=== PATIENT | male | born 2000 | race Caucasian/White ===

== ENCOUNTER 2020-05-20 12:28 | Day surgery (SDC) | payer OTHER ==
[~2020-05-20] VITALS: Ht 180.3 cm; Wt 84.1 kg
[2020-05-20 13:10] LABS: BASO % 0.3 % (0.0-1.0); EOS # 0.2 10^3/uL (0.0-0.5); EOS % 1.4 % (0.0-3.0); HEMATOCRIT 47.9 % (42.0-52.0); HEMOGLOBIN 16.7 g/dl (13.5-17.5); LYMPH # 3.1 10^3/uL (1.5-5.0); LYMPH % 20.3 % (24.0-44.0); MEAN CORPUSCULAR HEMOGLOBIN 30.5 pg (27.0-33.0); MEAN CORPUSCULAR HGB CONC 34.9 g/dl (32.0-36.5); MEAN CORPUSCULAR VOLUME 87.4 fl (80.0-96.0); MONO # 1.4 10^3/uL (0.0-0.8); MONO % 9.3 % (0.0-5.0); NEUTROPHILS # 10.4 10^3/uL (1.5-8.5); NEUTROPHILS % 68.2 % (36.0-66.0); PLATELET COUNT, AUTOMATED 214 10^3/uL (150-450); RED BLOOD COUNT 5.48 10^6/uL (4.30-6.10); WHITE BLOOD COUNT 15.2 10^3/uL (4.0-10.0)
[2020-05-20] MEDS ORDERED: ONDANSETRON 4MG/2ML VIAL IV ONE (13:30)
[2020-05-20] MEDS ORDERED: KETOROLAC 30 MG/ML 1ML VIAL IV ONE (13:30)
[2020-05-20] MEDS ORDERED: NS 1,000 ML IV ONE (13:30)
[2020-05-20 13:56] LABS: ALBUMIN 4.6 GM/DL (3.2-5.2); ALT/SGPT 34 U/L (12-78); BILIRUBIN,TOTAL 1.9 MG/DL (0.2-1.0); BLOOD UREA NITROGEN 14 MG/DL (7-18); CALCIUM LEVEL 9.6 MG/DL (8.5-10.1); CARBON DIOXIDE LEVEL 27 MEQ/L (21-32); CHLORIDE LEVEL 105 MEQ/L (98-107); GLUCOSE, FASTING 83 MG/DL (70-100); LIPASE 34 U/L (73-393); POTASSIUM SERUM 4.4 MEQ/L (3.5-5.1); SODIUM LEVEL 138 MEQ/L (136-145); TOTAL PROTEIN 8.4 GM/DL (6.4-8.2)
[2020-05-20 13:57] LABS: BILIRUBIN,DIRECT 0.3 MG/DL (0.0-0.2)
[2020-05-20] MEDS ORDERED: ISOVUE-370 76% 100ML VIAL As Ordered ONE (14:19)
--- NOTE | 2020-05-20 14:52 | REPVR ---
PROCEDURE INFORMATION: Exam: CT Abdomen And Pelvis With Contrast Exam date and time: 05/20/2020 2:21 PM Age: 19 years old Clinical indication: Abdominal pain; Localized; Right lower quadrant (rlq); Additional info: Rlq abd pain with n/v R/O infectious process TECHNIQUE: Imaging protocol: Computed tomography of the abdomen and pelvis with intravenous contrast. Radiation optimization: All CT scans at this facility use at least one of these dose optimization techniques: automated exposure control; mA and/or kV adjustment per patient size (includes targeted exams where dose is matched to clinical indication); or iterative reconstruction. Contrast material: ISOVUE 370; Contrast volume: 100 ml; Contrast route: INTRAVENOUS (IV); COMPARISON: No relevant prior studies available. FINDINGS: Lungs: The visualized lung bases are essentially clear. Liver: Normal. No mass. Gallbladder and bile ducts: No gallstones are evident, but ultrasound would be more sensitive. No gross biliary ductal dilatation. Pancreas: Normal. No ductal dilation. Spleen: Normal. No splenomegaly. Adrenals: Normal. No mass. Kidneys and ureters: Normal. No hydronephrosis. Stomach and bowel: The unopacified small bowel is not significantly distended to suggest obstruction. The large bowel is grossly unremarkable in appearance. Appendix: The appendix is mildly prominent in caliber, measuring up to 9 mm, and appears mildly thick-walled. There is no significant inflammatory change in the region, but the findings could relate to early appendicitis. Intraperitoneal space: No free air or significant free fluid. Vasculature: Unremarkable. No abdominal aortic aneurysm. Lymph nodes: Unremarkable. No enlarged lymph nodes. Urinary bladder: Unremarkable as visualized. Reproductive: Unremarkable as visualized. Bones/joints: Multilevel Schmorl's nodes are present. Soft tissues: Unremarkable. IMPRESSION: Findings as described which could relate to early appendicitis. Electronically signed by: Emil Gonzalez On 05/20/2020 14:52:40 PM
[2020-05-20] MEDS ORDERED: PIPERACILLIN/TAZOBACTAM SOD 3.375 GM in D5W MINI-BAG PLUS 50 ML IV ONE (15:45)
[2020-05-20] MEDS ORDERED: ZOSYN 3.375GM VIAL (J2543) As Ordered ONE (15:46)
[2020-05-20] MEDS ORDERED: BUPIVACAINE/EPIN 0.25% 30 ML VIAL As Ordered ONE (16:09)
[2020-05-20] MEDS ORDERED: fentaNYL 250 MCG/5 ML INJECTION (J3010) As Ordered ONE (17:13)
[2020-05-20] MEDS ORDERED: MIDAZOLAM INJ 2MG/2ML VIAL (J2250 PER 1MG) As Ordered ONE (17:13)
[2020-05-20] MEDS ORDERED: dexameTHASONE 4 MG/ML 1ML VIAL (J1100 PER 1MG) As Ordered ONE (17:13)
[2020-05-20] MEDS ORDERED: ONDANSETRON 4MG/2ML VIAL As Ordered ONE (17:13)
[2020-05-20] MEDS ORDERED: ROCURONIUM BROMIDE 50 MG/5 ML VIAL As Ordered ONE (17:13)
[2020-05-20] MEDS ORDERED: propofoL 200 MG/20 ML VIAL As Ordered ONE (17:13)
[2020-05-20] MEDS ORDERED: METOCLOPRAMIDE INJ 10MG/2ML VIAL (J2765 PER 1) As Ordered ONE (17:32)
[2020-05-20] MEDS ORDERED: LIDOCAINE 2% 100MG/5ML SDV (FOR ANES.) As Ordered ONE (17:32)
[2020-05-20] MEDS ORDERED: SUGAMMADEX SODIUM 500 MG/5 ML VIAL (BRIDION) As Ordered ONE (17:32)
[2020-05-20] MEDS ORDERED: ONDANSETRON 4MG/2ML VIAL IV PRN ×2 (18:15→18:30)
[2020-05-20] MEDS ORDERED: MORPHINE 2 MG/ML 1ML VIAL (J2270) IV PRN ×2 (18:15)
[2020-05-20] MEDS ORDERED: NORCO, ANEXSIA 5/325MG TABLET (HYDROcodone/ACETAMINOPHEN) PO PRN ×2 (18:15)
[2020-05-20] MEDS ORDERED: MORPHINE 4 MG/ML 1ML VIAL/SYRINGE (J2270) IV PRN (18:20)
[2020-05-20] MEDS ORDERED: oxyCODONE 5MG TAB PO PRN (18:30)
[2020-05-20] MEDS ORDERED: LR 1,000 ML IV SCH (18:30)
[2020-05-20] MEDS ORDERED: fentaNYL 100 MCG/2 ML INJECTION (J3010) IV PRN (18:30)
[2020-05-20] MEDS ORDERED: NS 1,000 ML IV SCH (18:30)
[2020-05-20 18:40] VITALS: BP 132/63
[2020-05-20 19:20] VITALS: BP 90/48
[2020-05-20 19:50] VITALS: BP 111/54
[2020-05-20 20:50] VITALS: BP 102/60
[2020-05-20] MEDS: KETOROLAC 30 MG/ML 1ML VIAL IV SCH (20:53)
[2020-05-20 21:50] VITALS: BP 116/64
[2020-05-20] MEDS: PIPERACILLIN/TAZOBACTAM SOD 3.375 GM in D5W MINI-BAG PLUS 50 ML IV SCH (22:22)
[2020-05-20 22:50] VITALS: BP 113/58
[2020-05-21 02:00] VITALS: BP 106/57
[2020-05-21] MEDS: KETOROLAC 30 MG/ML 1ML VIAL IV SCH ×3 (02:00→08:32)
[2020-05-21] MEDS: PIPERACILLIN/TAZOBACTAM SOD 3.375 GM in D5W MINI-BAG PLUS 50 ML IV SCH ×2 (03:08→10:22)
[2020-05-21 04:00] VITALS: BP 108/56
[2020-05-21] MEDS ORDERED: IBUP-1022 PO (08:47)
[2020-05-21] MEDS ORDERED: ACET-683 PO (08:47)
--- NOTE | 2020-06-16 14:53 | RO ---
DATE OF OPERATION: 05/20/2020 PREOPERATIVE DIAGNOSIS: Acute appendicitis. POSTOPERATIVE DIAGNOSIS: Acute appendicitis. PROCEDURE: Laparoscopic appendectomy. SURGEON: Lucius Byrd M.D. [employer]: ANESTHESIA: General endotracheal anesthesia. ESTIMATED BLOOD LOSS: Minimal. FLUIDS: Crystalloid. BRIEF PROCEDURE SUMMARY: The patient was brought to the operating room and was given general anesthesia. After adequate anesthesia and preoperative antibiotics were given, the patient was prepped and draped in the usual sterile fashion. Next, a supraumbilical incision was made with the skin knife. Blunt dissection was carried down to the fascia. The fascia was entered with a Veress needle and insufflated to 15 mm of pressure. A dilating 12-mm trocar was placed. Under direct visualization, suprapubic and left lower quadrant 5-mm trocars were placed. The patient was placed in Trendelenburg position and left side down. The appendix was dissected out using the Harmonic scalpel and some blunt dissection. This was mobilized off of the right abdominal wall/pelvic sidewall using the Harmonic scalpel. Once the mesentery of the appendix was well-visualized, this was transected using the Harmonic scalpel all the way to the base of the appendix down to the cecal wall. Then, a SAYRA stapler was used to transect this base and placed in an EndoCatch bag and brought out through the umbilicus. The abdomen was copiously irrigated until clear. All trocars were removed under direct visualization. Then, 0-Vicryl was used to close the fascia at the umbilicus. All incisions were closed with 4-0 Vicryl. Steri-Strips and a dry sterile dressing were applied. The patient was awakened, extubated, and brought to the recovery room awake, alert, and hemodynamically stable. Sponge and needle counts were correct x2. MTDD
== END 2020-05-21 12:52 | disposition home or self-care (01) ==
LOC: M ED 12:28 → M SDC 15:45 → M ED 16:57 → M MSPAV 18:55 → M SDC 05-21 12:52
PROVIDERS: ATTEND Surgery
DX: K35.890 Other acute appendicitis without perforation or gangrene (principal); F17.290 Nicotine dependence, other tobacco product, uncomplicated
CPT/HCPCS: 36415; 44970; 74177; 80048; 80076; 81001; 83690; 85025; 88304; 96361; 96365; 96366; 96375; 96376; 99284; J1100; J1885; J2250; J2405; J2543; J2765; J3010; Q9967; U0002